=== PATIENT | female | born 1945 | race Caucasian/White ===

== ENCOUNTER → 2016-11-29 | Outpatient (CLI) | payer OTHER, MEDICARE | LOC: NUC 11-20 09:42 → CAT 11-20 09:46 | DX: J33.8 Other polyp of sinus (principal); J32.9 Chronic sinusitis, unspecified; R09.81 Nasal congestion ==

== ENCOUNTER → 2017-09-12 | Outpatient (CLI) | payer OTHER, MEDICARE | LOC: NUC 08:15 | DX: Z13.820 Encounter for screening for osteoporosis (principal); N91.2 Amenorrhea, unspecified; Z78.0 Asymptomatic menopausal state ==

== ENCOUNTER → 2019-09-29 | Outpatient (CLI) | payer OTHER, MEDICARE ==
[2019-09-29 09:51] LABS: CREATININE 0.8 mg/dL (0.6-1.0)
== END ==
LOC: LABMALL 09:10 → CAT 09:10
PROVIDERS: Nurse Practitioner
DX: K57.30 Diverticulosis of large intestine without perforation or abscess without bleeding (principal); K44.9 Diaphragmatic hernia without obstruction or gangrene; K56.41 Fecal impaction